=== PATIENT | male | born 1955 | race Caucasian/White ===

== ENCOUNTER → 2018-06-06 | Outpatient (CLI) | payer OTHER ==
[~2018-06-06] MED LIST: FLEXERIL PO; IBUPROFEN 800800 M1 PO
[2018-06-06 13:23] LABS: CREATININE 1.1 mg/dL (0.7-1.3)
== END ==
LOC: LABMALL 12:56
PROVIDERS: Neuromusculoskeletal Medicine & OMM
DX: K57.30 Diverticulosis of large intestine without perforation or abscess without bleeding (principal); N40.0 Benign prostatic hyperplasia without lower urinary tract symptoms; N20.0 Calculus of kidney; M62.08 Separation of muscle (nontraumatic), other site; K91.89 Other postprocedural complications and disorders of digestive system

== ENCOUNTER 2018-07-28 09:13 | Emergency (ER) | payer OTHER ==
[~2018-07-28] VITALS: Ht 177.8 cm; Wt 97.5 kg
--- NOTE | ~2018-07-28 | EKG ---
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
[2018-07-28 09:47] LABS: ABSOLUTE NEUTROPHILS 4.4 thou/uL (1.4-8.2); BASOPHILS 0.7 % (0.0-2.0); EOSINOPHILS 2.3 % (0.0-3.0); HEMATOCRIT 41.7 % (42.0-52.0); HEMOGLOBIN 14.8 gm/dL (14.0-18.0); LYMPHOCYTES 31.5 % (24.0-44.0); MCH 32.1 pg (26.0-34.0); MCHC 35.4 g/dL (28.0-37.0); MCV 90.6 fL (80.0-100.0); MONOCYTES 8.9 % (1.0-8.0); PLATELET COUNT 199 thou/uL (150-400); POLYS 56.6 % (36.0-66.0); RBC 4.61 mil/uL (4.50-6.00); RDW 13.1 % (10.5-14.5); WBC 7.8 thou/uL (4.0-11.0)
[2018-07-28 10:01] LABS: ANION GAP 10 mmol/L (7-16); BUN 19 mg/dL (7-18); CALCIUM 9.2 mg/dL (8.5-10.1); CHLORIDE 105 mmol/L (98-107); CO2 25 mmol/L (21-32); CREATININE 1.3 mg/dL (0.7-1.3); GLUCOSE 118 mg/dL (74-106); POTASSIUM 4.7 mmol/L (3.5-5.1); SODIUM 140 mmol/L (136-145)
[2018-07-28 10:09] LABS: SGOT 27 U/L (15-37); SGPT 45 U/L (30-65); TOTAL BILIRUBIN 0.5 mg/dL (<0.1-1.0); TOTAL PROTEIN 7.5 g/dL (6.4-8.2); TROPONIN-I <0.06 ng/mL (<0.06)
[2018-07-28 10:33] LABS: URINE BILIRUBIN NEGATIVE (Negative); URINE BLOOD 2+ (Negative); URINE CLARITY CLEAR; URINE COLOR YELLOW; URINE GLUCOSE-RANDOM* NEGATIVE (Negative); URINE KETONES NEGATIVE (Negative); URINE LEUKOCYTES-REFLEX NEGATIVE (Negative); URINE NITRITE-REFLEX NEGATIVE (Negative); URINE PROTEIN (DIPSTICK) NEGATIVE (Negative); URINE SPECIFIC GRAVITY >= 1.030 (1.005-1.035); URINE UROBILINOGEN 0.2 E.U./dl (0.2-1.0)
[2018-07-28 10:50] LABS: BACTERIA-REFLEX 1-9 Few /HPF (None Seen); CASTS None Seen /LPF (None Seen); CRYSTALS None Seen /LPF (None Seen); SQUAMOUS None Seen /LPF (0-3); URINE RBC 3-10 Few /HPF (0-2); URINE WBC-REFLEX None Seen /HPF (0-5)
[2018-07-28] MEDS ORDERED: HYDROCODONE-AP1 EAC6 PO (11:37)
[2018-07-28] MEDS ORDERED: PHENERGAN 25 MG25 M1 PO (11:37)
[2018-07-28] MEDS ORDERED: FLOMAX0.4 MG PO (11:37)
[2018-07-28 12:24] VITALS: BP 119/71
[2018-07-28] MEDS ORDERED: CRESTOR20 MG PO (12:27)
[2018-07-28] MEDS ORDERED: SINGULAIR 10 MG10 M1 PO (12:27)
[2018-07-28] MEDS ORDERED: BENICAR40 MG PO (12:27)
== END 2018-07-28 12:29 | disposition home or self-care (01) ==
LOC: ER 09:13
PROVIDERS: Emergency Medicine
DX: N20.1 Calculus of ureter (principal); Z88.0 Allergy status to penicillin

== ENCOUNTER → 2019-07-11 | Outpatient (CLI) | payer OTHER ==
[~2019-07-11] MED LIST changes: +BENICAR40 MG PO; +CRESTOR20 MG PO; +FLOMAX0.4 MG PO; +HYDROCODONE-AP1 EAC6 PO; +PHENERGAN 25 MG25 M1 PO; +SINGULAIR 10 MG10 M1 PO
== END ==
LOC: CAT 10:01
DX: Z13.6 Encounter for screening for cardiovascular disorders (principal); E78.00 Pure hypercholesterolemia, unspecified; I25.10 Atherosclerotic heart disease of native coronary artery without angina pectoris